=== PATIENT | male | born 1945 | race Caucasian/White ===

== ENCOUNTER 2018-02-09 11:45 | Inpatient (IN) | payer MEDICARE, MEDICAID ==
[~2018-02-09] VITALS: Ht 162.6 cm; Wt 64.2 kg
[2018-02-09] MEDS ORDERED: SODIUM CHLORIDE 0.9% 1000ML BAG (SEPSIS BOLUS) IV ONE (12:45)
[2018-02-09] MEDS ORDERED: LORAZEPAM 2MG/ML CPJ IV ONE (13:15)
[2018-02-09 13:25] LABS: BASOPHILS % 0.4 % (0.0-2.0); EOSINOPHILS % 1.8 % (0.0-5.0); HEMATOCRIT. 38.5 % (42.0-52.0); HEMOGLOBIN. 13.4 g/dL (14.0-18.0); LYMPHOCYTES % 11.8 % (20.0-50.0); MEAN CORPUSCULAR HEMOGLOBIN 32.2 pg (28.0-32.0); MEAN CORPUSCULAR VOLUME 92.5 fL (80.0-94.0); MEAN PLATELET VOLUME 8.4 fl (7.4-10.4); MONOCYTES % 6.3 % (2.0-8.0); NEUTROPHILS % 79.7 % (40.0-76.0); PLATELET 238 x1000/uL (130-400); RED BLOOD CELL COUNT 4.16 mill/uL (4.7-6.1); RED CELL DISTRIBUTION WIDTH 12.8 % (11.6-14.6)
[2018-02-09 13:32] LABS: INR 1.1; PROTHROMBIN TIME 10.7 sec (9.1-11.1)
[2018-02-09 13:35] LABS: CHLORIDE 106 mEq/L (98-107); ETHANOL BLOOD < 10 mg/dL
[2018-02-09 14:05] LABS: CLARITY URINE CLEAR (CLEAR); COLOR URINE YELLOW (YELLOW); KETONES URINE NEGATIVE (NEGATIVE); LEUKOCYTE ESTERASE URINE NEGATIVE (NEGATIVE); NITRITE URINE NEGATIVE (NEGATIVE); OCCULT BLOOD URINE NEGATIVE (NEGATIVE); PH URINE 7.5 (4.5-8.0); PROTEIN URINE NEGATIVE (NEGATIVE); SPECIFIC GRAVITY URINE 1.007 (1.005-1.030); UROBILINOGEN URINE 0.2 E.U./dL (0.2-1.0)
[2018-02-09 14:22] LABS: *AMPHETAMINES SCREEN URINE NEGATIVE (NEGATIVE); *BARBITURATES SCREEN URINE NEGATIVE (NEGATIVE); *BENZODIAZEPINES SCREEN URINE NEGATIVE (NEGATIVE); *COCAINE SCREEN URINE NEGATIVE (NEGATIVE)
[2018-02-09 14:23] LABS: CANNABINOID URINE SCREEN NEGATIVE (NEGATIVE); METHADONE URINE SCREEN NEGATIVE (NEGATIVE); OPIATES URINE SCREEN NEGATIVE (NEGATIVE); PHENCYCLIDINE URINE SCREEN NEGATIVE (NEGATIVE)
[2018-02-09] MEDS ORDERED: LORAZEPAM 1MG TABLET PO ONE (16:15)
[2018-02-09] MEDS ORDERED: ACETAMINOPHEN 650MG SUPP PR PRN (17:45)
[2018-02-09] MEDS ORDERED: CLONIDINE 0.1MG TABLET PO PRN (17:45)
[2018-02-09] MEDS ORDERED: LORAZEPAM 2MG/ML CPJ IV PRN (17:45)
[2018-02-09] MEDS ORDERED: DIPHENHYDRAMINE 50MG/ML VIAL IV PRN (17:45)
[2018-02-09] MEDS ORDERED: ACETAMINOPHEN 325MG TABLET PO PRN (17:45)
[2018-02-09] MEDS ORDERED: NA PHOS,M-B/NA PHOS,DI-BA ENEMA 118ML PR PRN (17:45)
[2018-02-09] MEDS ORDERED: DEXTROSE 50% WATER 50ML SYRINGE IV PRN (17:45)
[2018-02-09] MEDS ORDERED: MAGNESIUM/ALUMINUM HYDROXIDE/SIMETHICONE 30ML UDC PO PRN (17:45)
[2018-02-09] MEDS ORDERED: IPRATROPIUM/ALBUTEROL 0.5-3(2.5)MG/3ML NEB INH PRN (17:45)
[2018-02-09] MEDS ORDERED: ONDANSETRON HCL 4MG/2ML INJ IV PRN (17:45)
[2018-02-09] MEDS ORDERED: HYDROCODONE/ACETAMINOPHEN 5/325MG TABLET PO PRN (17:45)
[2018-02-10] VITALS: BP 160/80
[2018-02-10 00:18] VITALS: BP 140/80
[2018-02-10] MEDS ORDERED: LOSA100T14 PO (03:40)
[2018-02-10] MEDS ORDERED: MEMA10TA19 PO (03:41)
[2018-02-10] MEDS ORDERED: METF-815 PO (03:41)
[2018-02-10 04:00] VITALS: BP 140/70
[2018-02-10] MEDS: BLOOD SUGAR DIAGNOSTIC STRIP TEST SCH ×2 (06:09→12:34)
[2018-02-10 06:13] LABS: BASOPHILS % 0.4 % (0.0-2.0); HEMATOCRIT. 36.5 % (42.0-52.0); HEMOGLOBIN. 12.9 g/dL (14.0-18.0); LYMPHOCYTES % 8.1 % (20.0-50.0); MEAN CORPUSCULAR HEMOGLOBIN 32.8 pg (28.0-32.0); MEAN CORPUSCULAR VOLUME 92.5 fL (80.0-94.0); MEAN PLATELET VOLUME 8.6 fl (7.4-10.4); MONOCYTES % 7.3 % (2.0-8.0); NEUTROPHILS % 83.2 % (40.0-76.0); PLATELET 233 x1000/uL (130-400); RED BLOOD CELL COUNT 3.94 mill/uL (4.7-6.1)
[2018-02-10] MEDS: INSULIN LISPRO 100 UNITS/ML SUBCUT SCH ×2 (07:55→13:01)
[2018-02-10 07:57] LABS: CHLORIDE 104 mEq/L (98-107); HDL CHOLESTEROL 49 mg/dL (40-59); LDL CHOLESTEROL 98 mg/dL (5-100)
[2018-02-10 08:00] VITALS: BP 172/83
[2018-02-10] MEDS ORDERED: AMLODIPINE 5MG TABLET PO SCH (09:00)
[2018-02-10] MEDS ORDERED: MEMANTINE HCL 5MG TABLET PO SCH (09:00)
[2018-02-10] MEDS ORDERED: HYDRALAZINE HCL 25MG TABLET PO SCH (09:00)
[2018-02-10 11:39] LABS: CARCINO EMBRYONIC ANTIGEN 0.7 ng/ml; PROSTRATE SPECIFIC AG TOTAL 1.96 ng/mL (0.0-4.0)
[2018-02-10 12:00] VITALS: BP 138/70
[2018-02-10 14:10] VITALS: BP 138/70
== END 2018-02-10 15:05 | disposition home or self-care (01) | DRG 72 ==
LOC: ER 12:02 → 7WST 16:16 → EDBEDREQ 16:20 → EDBEDREQSVC 16:20 → ENRESERV 22:50
PROVIDERS: ADMIT Internal Medicine; ATTEND Internal Medicine
DX: G93.40 Encephalopathy, unspecified (principal); F03.90 Unspecified dementia, unspecified severity, without behavioral disturbance, psychotic disturbance, mood disturbance, and anxiety; D64.9 Anemia, unspecified; E11.65 Type 2 diabetes mellitus with hyperglycemia; I10 Essential (primary) hypertension; Z86.73 Personal history of transient ischemic attack (TIA), and cerebral infarction without residual deficits
CPT/HCPCS: 36415; 70450; 71045; 80053; 80061; 80305; 81003; 82378; 82962; 83036; 83605; 84145; 84153; 84443; 84484; 85025; 85610; 87040; 87086; 93005; 93970; 96361; 96374; 96375; 97162; 99285; G0482; J1815; J2060; J7030; G0103

== ENCOUNTER 2018-05-19 23:08 | Emergency (ER) | payer MEDICARE, MEDICAID ==
[~2018-05-19] VITALS: Ht 167.6 cm; Wt 74.8 kg
[~2018-05-19 23:08] MED LIST: LOSA100T14 PO; MEMA10TA19 PO; METF-815 PO
[2018-05-20] MEDS ORDERED: TETANUS, DIPHTHERIA, PERTUSSIS VAC/PF 0.5ML (>7YR OLD) IM ONE (00:15)
[2018-05-20 01:15] VITALS: BP 165/77
== END 2018-05-20 01:18 | disposition home or self-care (01) ==
LOC: ER 23:08
DX: S00.01XA Abrasion of scalp, initial encounter (principal); M19.012 Primary osteoarthritis, left shoulder; F03.90 Unspecified dementia, unspecified severity, without behavioral disturbance, psychotic disturbance, mood disturbance, and anxiety; E11.9 Type 2 diabetes mellitus without complications; Z86.73 Personal history of transient ischemic attack (TIA), and cerebral infarction without residual deficits; Z79.84 Long term (current) use of oral hypoglycemic drugs; Z79.899 Other long term (current) drug therapy; W07.XXXA Fall from chair, initial encounter; Y93.89 Activity, other specified; Y92.89 Other specified places as the place of occurrence of the external cause; Y99.8 Other external cause status
CPT/HCPCS: 73030; 90471; 90715; 99284